=== PATIENT | male | born 2000 | race African-American/Black ===

== ENCOUNTER 2021-10-01 15:38 | Inpatient (IN) | payer SELFPAY ==
[2021-10-01] MEDS ORDERED: Dextrose 5%-0.9% NaCl 1,000 ML IV SCH (16:00)
[2021-10-01 16:41] LABS: ACETAMINOPHEN 38 ug/mL (10-30)
[2021-10-01] MEDS ORDERED: Ondansetron 4 MG/2 ML SDV IV PRN (18:21)
[2021-10-01] MEDS ORDERED: Albuterol/Ipratropium 3.0-0.5 MG/3 ML Neb Soln NEB PRN (18:21)
[2021-10-01 18:28] LABS: CORONAVIRUS COVID-19 NAA POSITIVE (NEGATIVE)
[2021-10-01] MEDS ORDERED: hydrALAZINE 20 MG/ML SDV IVPUSH PRN (18:29)
[2021-10-01] MEDS ORDERED: REMDESIVIR 200 MG in Sodium Chloride 0.9% 250 ML IV ONE (18:31)
[2021-10-01] MEDS ORDERED: LORazepam 2 MG/ML SDV IVPUSH PRN (18:55)
[2021-10-01] MEDS: Sodium Chloride 0.9% 1,000 ML IV SCH (21:59)
[2021-10-02] MEDS: Sodium Chloride 0.9% 1,000 ML IV SCH (05:23)
[2021-10-02] MEDS ORDERED: Magnesium Sulfate/Water 2 GM in Premix Bag 1 BAG IV ONE (09:30)
[2021-10-02] MEDS: Aspirin 81 MG Tab.EC PO SCH (10:00)
[2021-10-02] MEDS ORDERED: Haloperidol 5 MG Tab PO ONE (14:32)
[2021-10-02] MEDS: Topiramate 25 MG Tab PO SCH ×2 (14:53→20:04)
[2021-10-02] MEDS ORDERED: REMDESIVIR 100 MG in Sodium Chloride 0.9% 250 ML IV SCH (18:00)
[2021-10-02] MEDS ORDERED: Haloperidol 5 MG Tab PO SCH (21:00)
[2021-10-03] MEDS ORDERED: Haloperidol 5 MG Tab PO SCH (09:00)
[2021-10-03] MEDS: Aspirin 81 MG Tab.EC PO SCH (09:17)
[2021-10-03] MEDS: Topiramate 25 MG Tab PO SCH ×3 (09:18→20:18)
[2021-10-03] MEDS: Enoxaparin 40 MG/0.4 ML Syringe SUBCUT SCH (13:59)
[2021-10-03] MEDS: Benztropine 1 MG Tab PO SCH (19:17)
[2021-10-04] MEDS: Benztropine 1 MG Tab PO SCH ×2 (08:44→09:55)
[2021-10-04] MEDS: Aspirin 81 MG Tab.EC PO SCH ×2 (08:44→09:56)
[2021-10-04] MEDS: Topiramate 25 MG Tab PO SCH ×2 (08:44→09:53)
[2021-10-04] MEDS ORDERED: Haloperidol 5 MG Tab PO SCH (09:00)
[2021-10-04] MEDS ORDERED: CLOMIPRAMINE 75 MG PO ONE (09:24)
[2021-10-04] MEDS: Enoxaparin 40 MG/0.4 ML Syringe SUBCUT SCH ×2 (09:50→09:51)
== END 2021-10-04 12:35 | disposition home or self-care (01) | DRG 917 ==
LOC: JD.ED 15:38 → JD.ICU 17:53
PROVIDERS: ADMIT Emergency Medicine; ATTEND Internal Medicine
PROC: 8E0ZXY6 Isolation (ICD-10-PCS; principal; 2021-10-01)
DX: T43.212A Poisoning by selective serotonin and norepinephrine reuptake inhibitors, intentional self-harm, initial encounter (principal); U07.1 COVID-19; F31.60 Bipolar disorder, current episode mixed, unspecified; T39.1X2A Poisoning by 4-Aminophenol derivatives, intentional self-harm, initial encounter; T39.092A Poisoning by salicylates, intentional self-harm, initial encounter; F12.20 Cannabis dependence, uncomplicated; F15.10 Other stimulant abuse, uncomplicated; F11.10 Opioid abuse, uncomplicated; F42.2 Mixed obsessional thoughts and acts; F29 Unspecified psychosis not due to a substance or known physiological condition; F10.10 Alcohol abuse, uncomplicated; R07.2 Precordial pain
CPT/HCPCS: 0240U; 36415; 80053; 80143; 80179; 80306; 80307; 83735; 84484; 85025; 85379; 85610; 85730; 86140; 93005; 93010; 99285; 99285-25; A9270-GY; J1650; J2060; J2405; J3475; J7030; J7042

== ENCOUNTER 2023-09-07 05:08 | Emergency (ER) | payer SELFPAY ==
[2023-09-07] MEDS ORDERED: Ondansetron 4 MG/2 ML SDV IVPUSH ONE (05:50)
[2023-09-07] MEDS ORDERED: Sodium Chloride 0.9% 10 ML Syringe FLUSH PRN (06:29)
[2023-09-07] MEDS ORDERED: Sodium Chloride 0.9% 1,000 ML IV SCH (06:30)
[2023-09-07 06:39] LABS: BASOPHILS PERCENT AUTO 0.5 % (0.0-1.0); EOSINOPHILS PERCENT AUTO 0.6 % (0.0-6.0); HEMOGLOBIN 14.1 gm/dl (14.0-18.0); IMMATURE GRAN ABSOLUTE AUTO 0.01 K/mm3 (0.00-0.05); IMMATURE GRAN PERCENT AUTO 0.2 % (0.0-0.4); LYMPHOCYTES ABSOLUTE AUTO 3.1 K/mm3 (1.0-4.8); LYMPHOCYTES PERCENT AUTO 49.4 % (24.0-44.0); MEAN CORPUSCULAR HEMOGLOBIN 23.1 pg (28.0-32.0); MEAN CORPUSCULAR HGB CONC 30.7 g/dl (32.0-36.0); MEAN CORPUSCULAR VOLUME 75.3 fl (83.0-99.0); MEAN PLATELET VOLUME 11.7 fl (9.4-12.4); MONOCYTES ABSOLUTE AUTO 0.3 K/mm3 (0.0-0.8); MONOCYTES PERCENT AUTO 5.4 % (0.0-8.0); NEUTROPHILS ABSOLUTE AUTO 2.8 K/mm3 (1.8-7.7); NEUTROPHILS PERCENT AUTO 43.9 % (41.0-71.0); PLATELET COUNT,PLT 283 K/mm3 (150-400); RED BLOOD CELL COUNT 6.11 M/mm3 (4.52-5.90); WHITE BLOOD CELL COUNT,WBC 6.34 K/mm3 (3.9-11.3)
[2023-09-07 07:31] LABS: A/G RATIO 1.1 (1-2); ALBUMIN 4.5 g/dl (3.4-5.0); ANION GAP 18.2 (5-15); BILIRUBIN TOTAL 0.7 mg/dL (0.2-1.0); BUN/CREATININE RATIO 13.6 (14-18); CALCIUM 9.2 mg/dL (8.5-10.1); CREATININE 1.1 mg/dL (0.7-1.3); EST CRCL DRUG DOSING (CG) 97.16 mL/min; POTASSIUM,K 3.2 mEq/L (3.5-5.1); PROTEIN TOTAL,TP 8.5 g/dl (6.4-8.2)
[2023-09-07 11:43] LABS: BARBITURATE SCREEN,URINE NEGATIVE (CUTOFF=200); BENZODIAZEPINES SCREEN,URINE NEGATIVE (CUTOFF=150); BUPRENORPHINE SCREEN,URINE NEGATIVE (CUTOFF=10); METHADONE SCREEN, URINE NEGATIVE (CUT0FF=200); METHAMPHETAMINES SCREEN, URINE NEGATIVE (CUTOFF=500); OXYCODONE SCREEN,URINE NEGATIVE (CUT0FF=100); THC SCREEN,URINE 20 NG/ML PRESUMPTIVE POSITIVE (CUTOFF=50)
[2023-09-07 11:52] LABS: AMPHETAMINES SCREEN, URINE NEGATIVE (CUTOFF=500)
== END 2023-09-07 11:53 | disposition home or self-care (01) ==
LOC: JD.ED 05:08
DX: F10.920 Alcohol use, unspecified with intoxication, uncomplicated (principal)
CPT/HCPCS: 36415; 80053; 80306; 80307; 85025; 96361; 96374; 99284; J2405; J7030